=== PATIENT | male | born 1960 | race Caucasian/White ===

== ENCOUNTER 2019-06-07 14:44 | Observation (INO) | payer OTHER ==
[2019-06-07 15:34] LABS: ABS Lymphocytes 1.1 10^3/ul (1.0-4.8); ABS Monocytes 0.4 10^3/ul (0-0.8); ABS Neutrophils 3.6 10^3/ul (1.5-7.7); Eosinophil % 0.4 %; Hematocrit 40 % (42-52); Hemoglobin 13.6 g/dL (14.0-18.0); Lymphocyte % 20.7 %; Mean Corpuscular HGB Conc 34 g/dL (31-36); Mean Corpuscular Hemoglobin 33 pg (27-31); Mean Corpuscular Volume 97 fL (80-94); Mean Platelet Volume 7.4 fL (7.4-10.4); Nucleated Red Blood Cells % 0.2; Platelet Count 106 10^3/uL (150-450); Red Blood Count 4.07 10^6 /uL (4.18-5.48); Red Cell Distribution Width 15 % (10-15); White Blood Count 5.1 10^3/uL (3.5-10.8)
[2019-06-07 15:56] LABS: Troponin I 0.01 ng/mL (<0.04)
[2019-06-07 16:02] LABS: Albumin 4.3 g/dL (3.2-5.2); Albumin/Globulin Ratio 1.2 (1-3); BUN/Creatinine Ratio 15.6 (8-20); Calcium 9.3 mg/dL (8.6-10.3); EGFR African American 104.9 (>60); EGFR Non-African American 86.7 (>60); Globulin 3.5 g/dL (2-4); Potassium 3.9 mmol/L (3.5-5.0); Total Bilirubin 0.6 mg/dL (0.2-1.0); Total Protein 7.8 g/dL (6.4-8.9)
[2019-06-07] MEDS ORDERED: Metoprolol Tartrate TAB* 25 MG PO ONE (16:34)
--- NOTE | 2019-06-07 17:24 | ED ---
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 Patient states that he has been in correction for the past year. Patient states that on 05/31/19 he went out to the correction yard and started working out and running when he experienced a near syncope episode. Patient states he then sat down to catch his breath and then continued to power walk. Patient states he still felt like he was going to pass out. Patient states that today he thought it would be a good idea to be seen by a doctorThe patient rates the pain 6/10 in severity. Symptoms aggravated by exertion. Symptoms alleviated by nothing. Patient reports tight chest pain, left ear pain and sob since resolved. Patient denies fever, vomiting, diarrhea. Patient denies EtOH use, substance abuse, and tobacco use. Allergies Allergy/AdvReac Type Severity Reaction Status Date / Time fish derived Allergy Anaphylatic Verified 06/07/19 14:52 Shock Home Medications Medication Instructions Recorded Confirmed Type NK [No Home Medications Reported] 06/07/19 06/07/19 History - History Of Current Complaint Chief Complaint: EDSyncope Time Seen by Provider: 06/07/19 14:54 Hx Obtained From: Patient Onset/Duration: Sudden Onset, Lasting Days - 05/31/19 Timing: Intermittent Episode Lasting Context: Witnessed Activity At Onset: Exertion Aggravating Factor(s): Nothing Alleviating Factor(s): Nothing Associated Signs And Symptoms: Chest Pain - tightness, Shortness Of Breath - Allergies/Home Medications Allergies/Adverse Reactions: Allergies Allergy/AdvReac Type Severity Reaction Status Date / Time fish derived Allergy Anaphylatic Verified 06/07/19 14:52 Shock Home Medications: Home Medications NK [No Home Medications Reported] 06/07/19 [History Confirmed 06/07/19] PMH/Surg Hx/FS Hx/Imm Hx Endocrine/Hematology History: Denies: Hx Diabetes Cardiovascular History: Denies: Hx Hypertension Infectious Disease History: No Infectious Disease History: Denies: Traveled Outside the [place] in Last 30 Days - Social History Alcohol Use: None Substance Use Type: Reports: None Hx Tobacco Use: No Smoking Status (MU): Never Smoked Tobacco Review of Systems Negative: Fever Negative: Vomiting, Diarrhea Positive: Syncope - episodes All Other Systems Reviewed And Are Negative: Yes Physical Exam - Summary Physical Exam Summary: Constitutional: Well-developed, Well-nourished, Alert. (-) Distressed Skin: Warm, Dry HENT: Normocephalic; Atraumatic Eyes: Conjunctiva normal Neck: Musculoskeletal ROM normal neck. (-) JVD, (-) Stridor, (-) Tracheal deviation Cardio: Rhythm regular, rate normal, Heart sounds normal; Intact distal pulses; The pedal pulses are 2+ and symmetric. Radial pulses are 2+ and symmetric. (-) Murmur Pulmonary/Chest wall: Effort normal. (-) Respiratory distress, (-) Wheezes, (-) Rales Abd: Soft, (-) tenderness, (-) Distension, (-) Guarding, (-) Rebound Musculoskeletal: (-) Edema Lymph: (-) Cervical adenopathy Neuro: Alert, Oriented x3 Psych: Mood and affect Normal Triage Information Reviewed: Yes Vital Signs On Initial Exam: Initial Vitals Temp Pulse Resp BP Pulse Ox 98.7 F 71 16 167/125 98 06/07/19 14:46 06/07/19 14:46 06/07/19 14:46 06/07/19 14:46 06/07/19 14:46 Vital Signs Reviewed: Yes Diagnostics - Vital Signs Vital Signs Temp Pulse Resp BP Pulse Ox 06/07/19 17:16 98 F 65 17 160/99 96 06/07/19 16:20 66 17 160/99 96 06/07/19 16:00 63 11 96 06/07/19 15:50 69 13 193/122 97 06/07/19 15:20 66 15 146/96 97 06/07/19 15:00 73 28 99 06/07/19 14:50 74 167/125 98 06/07/19 14:49 70 98 06/07/19 14:46 98.7 F 71 16 167/125 98 - Laboratory Lab Results: Lab Results 06/07/19 06/07/19 06/07/19 Range/Units 15:15 15:15 15:15 WBC 5.1 (3.5-10.8) 10^3/uL RBC 4.07 L (4.18-5.48) 10^6 /uL Hgb 13.6 L (14.0-18.0) g/dL Hct 40 L (42-52) % MCV 97 H (80-94) fL MCH 33 H (27-31) pg MCHC 34 (31-36) g/dL RDW 15 (10-15) % Plt Count 106 L (150-450) 10^3/uL MPV 7.4 (7.4-10.4) fL Neut % (Auto) 70.4 % Lymph % (Auto) 20.7 % [place] % (Auto) 8.0 % Eos % (Auto) 0.4 % Baso % (Auto) 0.5 % Absolute Neuts (auto) 3.6 (1.5-7.7) 10^3/ul Absolute Lymphs (auto) 1.1 (1.0-4.8) 10^3/ul Absolute Monos (auto) 0.4 (0-0.8) 10^3/ul Absolute Eos (auto) 0.0 (0-0.6) 10^3/ul Absolute Basos (auto) 0.0 (0-0.2) 10^3/ul Absolute Nucleated RBC 0.0 10^3/ul Nucleated RBC % 0.2 Sodium 142 (135-145) mmol/L Potassium 3.9 (3.5-5.0) mmol/L Chloride 107 (101-111) mmol/L Carbon Dioxide 28 (22-32) mmol/L Anion Gap 7 (2-11) mmol/L BUN 14 (6-24) mg/dL Creatinine 0.90 (0.67-1.17) mg/dL Est GFR ( Amer) 104.9 (>60) Est GFR (Non-Af Amer) 86.7 (>60) BUN/Creatinine Ratio 15.6 (8-20) Glucose 101 H (70-100) mg/dL Calcium 9.3 (8.6-10.3) mg/dL Total Bilirubin 0.60 (0.2-1.0) mg/dL AST 27 (13-39) U/L ALT 20 (7-52) U/L Alkaline Phosphatase 89 (34-104) U/L Troponin I 0.01 (<0.04) ng/mL B-Natriuretic Peptide 79 (<=100) pg/mL Total Protein 7.8 (6.4-8.9) g/dL Albumin 4.3 (3.2-5.2) g/dL Globulin 3.5 (2-4) g/dL Albumin/Globulin Ratio 1.2 (1-3) Result Diagrams: 06/07/19 15:15 06/07/19 15:15 Lab Statement: Any lab studies that have been ordered have been reviewed, and results considered in the medical decision making process. - Radiology CHest Xray Radiology Interpretation Completed By: Radiologist Summary of Radiographic Findings: Chest Xray reveals, per radiologist, IMPRESSION: No evidence for acute intrathoracic disease. ED Physician has reviewed this report. - EKG 1531 Cardiac Rate: NL EKG Rhythm: Sinus Rhythm - 65 bpm EKG Comparison: Other - no prior ekg Summary of EKG Findings: EKG reveals sinus rythm at 65 bpm with t wave inversion 3 T flatting in avf. No prior comparison. Course/Dx Course Of Treatment: Patient is here with exertional seek appear with a past 3 weeks. This is atypical for patient. Patient's never had a cardiac work up in his life. Patient was a symptomatically on arrival. Patient did have T-wave inversions in his inferior leads. Patient negative chest x-ray and blood work. Patient was admitted to medicine for further workup and management. - Diagnoses Provider Diagnoses: Syncope - Physician Notifications Discussed Care of Patient With: Elizabeth Altamirano - Hospitalist Time Discussed With Above Provider: 16:19 Instructed by Provider To: Other - Dr. Altamirano accepts patient for admission. Discharge ED - Sign-Out/Discharge Documenting (check all that apply): Patient Departure - admitted Patient Received Moderate/Deep Sedation with Procedure: No - Discharge Plan Condition: Stable Disposition: ADMITTED TO [facility] - Billing Disposition and Condition Condition: STABLE Disposition: Admitted to [facility] - Attestation Statements Document Initiated by Hennaibe: Yes Documenting Scribe: Kacey Mayfield Provider For Whom Hennaibkenisha is Documenting (Include Credential): Dr. Lobo Obregon MD Scribe Attestation: Kacey Mansfield scribed for Dr. Lobo Obregon MD on 06/07/19 at 2103. Scribe Documentation Reviewed: Yes Provider Attestation: The documentation as recorded by the Kacey darby accurately reflects the service I personally performed and the decisions made by al, Dr. Lobo Obregon MD Status of Scribe Document: Viewed
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
[2019-06-07] MEDS: Metoprolol Tartrate TAB* 25 MG PO SCH (20:39)
[2019-06-07] MEDS ORDERED: Heparin VIAL(*) 5000 UNITS/ML VIAL (FIVE THOUSAND) SUBCUT SCH (22:00)
[2019-06-07] MEDS: Acetaminophen TAB* 325 MG PO PRN (23:37)
[2019-06-08] MEDS: Acetaminophen TAB* 325 MG PO PRN (05:42)
[2019-06-08] MEDS: Metoprolol Tartrate TAB* 25 MG PO SCH (07:39)
[2019-06-08] MEDS ORDERED: Aspirin 81 mg CHEW TAB* 81 MG TAB.CHEW PO SCH (09:00)
[2019-06-08 11:23] VITALS: BP 139/87
--- NOTE | 2019-06-08 14:23 | DS ---
CC: Dr. Fofana, [facility] * DISCHARGE SUMMARY: DATE OF ADMISSION: 06/07/19 DATE OF DISCHARGE: 06/08/19 PRINCIPAL DISCHARGE DIAGNOSES: 1. Chest pain. 2. Near syncope. SECONDARY DISCHARGE DIAGNOSES: 1. Cirrhosis. 2. History of variceal bleed. 3. Hypertension. 4. History of hepatitis C virus. 5. History of alcohol use disorder. MEDICATIONS ON DISCHARGE: Nadolol 20 mg daily. PHYSICAL EXAMINATION AT THE TIME OF DISCHARGE: Vital Signs: Temperature 98.1, heart rate 63, respiratory rate 19, pulse ox 98% on room air, blood pressure 139 /87. General: Alert, well-appearing man, who appears older than her stated age in no distress, resting comfortably in bed. HEENT: Pupils equal, round, and reactive to light. No scleral icterus. Oral mucosa is moist. Neck: No JVP. No adenopathy. Chest: He is in regular rate and rhythm with no murmurs. His lungs are clear bilaterally. Abdomen: Soft, nontender, nondistended. No ascites. His liver is palpable at the costal margin. No CVA tenderness. Extremities: No edema, rashes, or ulcers. No ecchymosis. HOSPITAL COURSE BY PROBLEM: 1. Chest pain and near syncope. Mr. Navarrete presented with 3 weeks of occasional episodes of exertional chest pain and near syncope that happened when he exercised. It happened 3 times on the day of admission, so he was sent to the emergency department for further evaluation. He had a recent outpatient stress echocardiogram that was reportedly unremarkable. He was admitted to the telemetry floor for acute coronary syndrome rule out. He had no events on telemetry. His troponins were negative x3. He underwent a nuclear stress test on 06/08/19, which was low risk and had no definite fixed or reversible perfusion defect. He had no further chest pain during this hospitalization. A D-dimer was less than 200 and the remainder of his workup was unremarkable. A BNP was 79. The etiology of his symptoms remains unclear. My recommendation would be for a long-term inspector and clerk going forward to evaluate for an arrhythmia. This should be arranged as an outpatient. 2. Cirrhosis. He did not have evidence of decompensation during this admission. He did have a recent variceal bleed earlier this year, so he was started on a beta-ion and he is being discharged on this. 3. Hypertension. His blood pressure was uncontrolled upon arrival to the emergency department. A beta-ion was initiated and he has remained normotensive on the day of discharge. 4. History of hepatitis C virus, treated. His lab work was only significant for a thrombocytopenia of 106,000. His liver function tests were normal. 5. History of alcohol use disorder. DISPOSITION: Mr. Navarrete is being discharged back to [facility] on 06/08/19. Followup needed. I recommend blood pressure monitoring to ensure that this beta -ion is adequate and a long-term inspector and clerk to rule out an occult arrhythmia that is not being captured during his 24-hour observation. CONDITION AT THE TIME OF DISCHARGE: Stable. [id number]/[id number] #: [id number] MTDD
== END 2019-06-08 16:30 ==
LOC: ED 14:44 → EEVIPCON 16:27 → MEDTELE 16:27
PROVIDERS: ADMIT Internal Medicine; ATTEND Internal Medicine
DX: R07.9 Chest pain, unspecified (principal); R55 Syncope and collapse; K74.60 Unspecified cirrhosis of liver; I10 Essential (primary) hypertension; Z86.19 Personal history of other infectious and parasitic diseases; Z86.59 Personal history of other mental and behavioral disorders; M54.5 Low back pain; R53.83 Other fatigue; R06.00 Dyspnea, unspecified; Z87.19 Personal history of other diseases of the digestive system
CPT/HCPCS: 36415; 71045; 78452; 80053; 83880; 84484; 85025; 85379; 93005; 93017; 99284; A9270-GY; A9502; G0378